=== PATIENT | female | born 1945 | race Caucasian/White ===

== ENCOUNTER 2016-09-22 08:49 | Day surgery (SDC) | payer OTHER ==
[2016-09-21 11:16] VITALS: BMI 29.2
[2016-09-22 09:28] VITALS: TEMP 98.3
[2016-09-22] MEDS ORDERED: PROPOFOL 20 ML ONE (09:48)
[2016-09-22] MEDS ORDERED: MIDAZOLAM HCL 2 MG/2 ML SINGLE DOSE VIAL ONE (09:48)
[2016-09-22] MEDS ORDERED: SUCCINYLCHOLINE CHLORIDE 200 MG/10 ML VIAL ONE (09:48)
[2016-09-22] MEDS ORDERED: ONDANSETRON 4 MG/2 ML VIAL ONE (09:48)
[2016-09-22] MEDS ORDERED: INDOMETHACIN 50 MG RECTAL SUPPOSITORY PR ONE ×2 (10:37→10:45)
[2016-09-22] MEDS ORDERED: ceFAZolin SODIUM 1 GM VIAL ONE (10:43)
[2016-09-22] MEDS ORDERED: IOHEXOL 300 MG/ML INFUS..BTL IV ONE (11:05)
[2016-09-22 15:06] VITALS: BP 156/90; PULSE 61
== END 2016-09-22 15:06 | disposition home or self-care (01) ==
LOC: JASU-ENDO 08:49
PROVIDERS: ATTEND Internal Medicine Gastroenterology
PROC: 0FC98ZZ Extirpation of Matter from Common Bile Duct, Via Natural or Artificial Opening Endoscopic (ICD-10-PCS; principal; 2016-09-22 12:00)
DX: K80.50 Calculus of bile duct without cholangitis or cholecystitis without obstruction (principal)
CPT/HCPCS: 74330-TC